=== PATIENT | male | born 1965 | race Caucasian/White ===

== ENCOUNTER 2018-09-06 01:17 | Emergency (ER) | payer OTHER ==
[~2018-09-06] VITALS: Ht 182.9 cm; Wt 90.7 kg
[~2018-09-06 01:17] MED LIST: ASPIR 8181 MG PO; LIPITOR 20 MG T20 M1 PO; [UNRECOGNIZED DRUG - CODE] PO
[2018-09-06] MEDS ORDERED: DILANTIN100 MG PO (01:32)
[2018-09-06 01:47] LABS: ABSOLUTE BASOPHILS 0.1 thou/uL (0.0-0.2); ABSOLUTE EOSINOPHILS 0.4 thou/uL (0.0-0.7); ABSOLUTE LYMPHOCYTES 2.3 thou/uL (0.8-5.3); ABSOLUTE MONOCYTES 0.7 thou/uL (0.0-1.2); ABSOLUTE NEUTROPHILS 3.7 thou/uL (1.6-8.1); BASOPHILS 1.1 %; EOSINOPHILS 5.1 %; HEMATOCRIT 40.1 % (42.0-52.0); HEMOGLOBIN 13.5 gm/dL (14.0-18.0); LYMPHOCYTES 31.8 %; MCH 32.9 pg (26.0-34.0); MCHC 33.8 g/dL (28.0-37.0); MCV 97.4 fL (80.0-100.0); MONOCYTES 9.5 %; MPV 8.3 fl. (7.2-11.1); NUCLEATED RBCS 0 /100WBC; PLATELET COUNT* 212 thou/uL (150-400); POLYS 52.5 %; RBC 4.12 mil/uL (4.50-6.00); RDW-CV 13.6 % (10.5-14.5); WBC 7.1 thou/uL (4.0-11.0)
[2018-09-06 01:58] LABS: CALCIUM 8.4 mg/dL (8.5-10.1); CREATININE 1.4 mg/dL (0.6-1.3); POTASSIUM 3.9 mmol/L (3.5-5.1)
[2018-09-06 01:59] LABS: APTT 25.5 Seconds (25.0-31.3); PROTIME 10.4 Seconds (9.20-11.50)
[2018-09-06 02:03] LABS: ALBUMIN 3.5 g/dL (3.4-5.0); TOTAL BILIRUBIN 0.1 mg/dL (<0.1-1.0); TOTAL PROTEIN 6.8 g/dL (6.4-8.2)
[2018-09-06] MEDS ORDERED: KEFLEX500 M1 PO (02:50)
[2018-09-06] MEDS ORDERED: IBUPROFEN 800800 MG PO (02:56)
[2018-09-06] MEDS ORDERED: ULTRAM 50MG TAB50 MG PO (02:56)
[2018-09-06 03:07] VITALS: BP 118/66
== END 2018-09-06 03:08 | disposition home or self-care (01) ==
LOC: M.ERS 01:17
PROVIDERS: Personal Emergency Response Attendant
DX: I80.3 Phlebitis and thrombophlebitis of lower extremities, unspecified (principal); Z87.891 Personal history of nicotine dependence

== ENCOUNTER 2020-10-02 16:20 | Inpatient (IN) | payer OTHER ==
[~2020-10-02] VITALS: Ht 182.9 cm; Wt 94.3 kg
[~2020-10-02 16:20] MED LIST changes: +DILANTIN100 MG PO; +IBUPROFEN 800800 MG PO; +KEFLEX500 M1 PO; +ULTRAM 50MG TAB50 MG PO
[2020-10-02 16:31] VITALS: BP 119/80
[2020-10-02 16:48] LABS: ABSOLUTE LYMPHOCYTES 0.7 thou/uL (0.8-5.3); ABSOLUTE MONOCYTES 0.6 thou/uL (0.0-1.2); ABSOLUTE NEUTROPHILS 3.1 thou/uL (1.6-8.1); BASOPHILS 0.4 %; EOSINOPHILS 0.1 %; HEMOGLOBIN 16.3 gm/dL (14.0-18.0); LYMPHOCYTES 15.5 %; MCH 33.1 pg (26.0-34.0); MCHC 34.7 g/dL (28.0-37.0); MCV 95.5 fL (80.0-100.0); MONOCYTES 12.8 %; MPV 8.9 fl. (7.2-11.1); NUCLEATED RBCS 0 /100WBC; PLATELET COUNT* 137 thou/uL (150-400); POLYS 71.2 %; RBC 4.92 mil/uL (4.50-6.00); RDW-CV 13.1 % (10.5-14.5); WBC 4.3 thou/uL (4.0-11.0)
[2020-10-02 16:59] LABS: CALCIUM 8.4 mg/dL (8.5-10.1); CREATININE 1.4 mg/dL (0.6-1.3); POTASSIUM 3.5 mmol/L (3.5-5.1)
[2020-10-02 17:01] LABS: APTT 29.5 Seconds (25.0-31.3); INR 1.1; PROTIME 11.6 Seconds (9.20-11.50)
[2020-10-02 17:09] LABS: ALBUMIN 3.5 g/dL (3.4-5.0); TOTAL BILIRUBIN 0.3 mg/dL (<0.1-1.0); TOTAL PROTEIN 8.1 g/dL (6.4-8.2)
[2020-10-02 18:40] VITALS: BP 126/79
[2020-10-02 20:00] VITALS: BP 115/75
[2020-10-03] VITALS (7 sets, daily range): BP systolic 105–133; BP diastolic 65–87
[2020-10-03 01:10] LABS: URINE BLOOD TRACE (Negative); URINE CLARITY CLEAR; URINE COLOR YELLOW; URINE GLUCOSE-RANDOM NEGATIVE (Negative); URINE KETONES 3+ (Negative); URINE LEUKOCYTES-REFLEX NEGATIVE (Negative); URINE NITRITE-REFLEX NEGATIVE (Negative); URINE PROTEIN 1+ (Negative); URINE SPECIFIC GRAVITY 1.025 (1.005-1.030); URINE UROBILINOGEN 0.2 E.U./dl (0.2-1.0)
[2020-10-03 01:11] LABS: URINE BILIRUBIN 1+ (Negative)
[2020-10-03 01:13] LABS: ACETEST (KETONE CONFIRMATORY) Moderate (Negative); ICTOTEST (BILI CONFIRMATORY) Negative (Negative)
[2020-10-03 06:54] LABS: ABSOLUTE LYMPHOCYTES 0.8 thou/uL (0.8-5.3); ABSOLUTE MONOCYTES 0.4 thou/uL (0.0-1.2); ABSOLUTE NEUTROPHILS 1.7 thou/uL (1.6-8.1); BASOPHILS 0.4 %; MCH 32.4 pg (26.0-34.0); MCHC 34.1 g/dL (28.0-37.0); MCV 95.1 fL (80.0-100.0); MONOCYTES 13.5 %; MPV 9.1 fl. (7.2-11.1); NUCLEATED RBCS 0 /100WBC; PLATELET COUNT* 120 thou/uL (150-400); POLYS 58.1 %; RBC 4.21 mil/uL (4.50-6.00); RDW-CV 13.2 % (10.5-14.5); WBC 2.9 thou/uL (4.0-11.0)
[2020-10-03 06:57] LABS: CALCIUM 7.5 mg/dL (8.5-10.1); CREATININE 1.1 mg/dL (0.6-1.3); POTASSIUM 3.5 mmol/L (3.5-5.1)
[2020-10-03 06:58] LABS: HEMOGLOBIN 13.6 gm/dL (14.0-18.0)
--- NOTE | 2020-10-03 10:05 | EKG ---
[place] [address] ELECTROCARDIOGRAM REPORT Name: TONNY CHAPMAN Room: [address] ADM IN .R.#: [id number] Admission: 10/02/20 Attend Phys: Shilo Tabares, Discharge: Date of : 61 Date of Service: 10/02/20 1647 Report #: [id number] THIS REPORT FOR: //name// [facility] ED Test Date: 2020-10-02 Test Time: 16:47:57 Pat Name: TONNY CHAPMAN Department: Room: [facility] Gender: M Mother Baby Rn: CCD : 1965 Requested By: Mark Gregory Order Number: [id number] MD: Mohinder Contreras Measurements Intervals Elizabeth Rate: 87 P: 37 VT: 167 QRS: 261 QRSD: 105 T: 31 QT: 368 QTc: 443 Interpretive Statements Sinus rhythm LAD, consider left anterior fascicular block late transition Compared to ECG 10/17/2017 02:11:19 No significant changes Electronically Signed On 10-03-2020 10:05:23 WHEEL LOADER OPERATOR by Mohinder Contreras [email or web address] <ELECTRONICALLY SIGNED> By: Mohinder Contreras MD, FACC 10/03/20 1005 1647 1647 Mohinder Contreras MD, [facility] /EPI
[2020-10-04 00:08] VITALS: BP 133/78
[2020-10-04 04:20] VITALS: BP 110/65
[2020-10-04 07:06] LABS: ABSOLUTE LYMPHOCYTES 0.8 thou/uL (0.8-5.3); ABSOLUTE MONOCYTES 0.3 thou/uL (0.0-1.2); BASOPHILS 0.3 %; EOSINOPHILS 0.1 %; HEMATOCRIT 36.9 % (42.0-52.0); HEMOGLOBIN 12.7 gm/dL (14.0-18.0); LYMPHOCYTES 24.1 %; MCH 32.6 pg (26.0-34.0); MCHC 34.4 g/dL (28.0-37.0); MONOCYTES 10.7 %; MPV 8.6 fl. (7.2-11.1); NUCLEATED RBCS 0 /100WBC; PLATELET COUNT* 136 thou/uL (150-400); POLYS 64.8 %; RBC 3.88 mil/uL (4.50-6.00); RDW-CV 13.4 % (10.5-14.5); WBC 3.1 thou/uL (4.0-11.0)
[2020-10-04 07:27] LABS: ALBUMIN 2.4 g/dL (3.4-5.0); CALCIUM 6.9 mg/dL (8.5-10.1); POTASSIUM 3.4 mmol/L (3.5-5.1); TOTAL BILIRUBIN 0.3 mg/dL (<0.1-1.0); TOTAL PROTEIN 5.8 g/dL (6.4-8.2)
[2020-10-04 09:25] VITALS: BP 121/85
[2020-10-04 12:49] VITALS: BP 126/81
[2020-10-04 18:00] VITALS: BP 123/73
[2020-10-04 20:14] VITALS: BP 113/70
[2020-10-05 00:08] VITALS: BP 137/79
[2020-10-05 05:07] LABS: ABSOLUTE LYMPHOCYTES 0.7 thou/uL (0.8-5.3); ABSOLUTE MONOCYTES 0.4 thou/uL (0.0-1.2); ABSOLUTE NEUTROPHILS 2.7 thou/uL (1.6-8.1); BASOPHILS 0.2 %; EOSINOPHILS 0.1 %; HEMATOCRIT 39.9 % (42.0-52.0); HEMOGLOBIN 13.7 gm/dL (14.0-18.0); LYMPHOCYTES 19.2 %; MCH 32.6 pg (26.0-34.0); MCHC 34.5 g/dL (28.0-37.0); MCV 94.7 fL (80.0-100.0); MONOCYTES 10.6 %; MPV 8.6 fl. (7.2-11.1); NUCLEATED RBCS 0 /100WBC; PLATELET COUNT* 154 thou/uL (150-400); POLYS 69.9 %; RBC 4.21 mil/uL (4.50-6.00); RDW-CV 13.1 % (10.5-14.5); WBC 3.9 thou/uL (4.0-11.0)
[2020-10-05 05:10] VITALS: BP 106/72
[2020-10-05 05:27] LABS: ALBUMIN 2.6 g/dL (3.4-5.0); CALCIUM 7.5 mg/dL (8.5-10.1); POTASSIUM 3.3 mmol/L (3.5-5.1); TOTAL BILIRUBIN 0.4 mg/dL (<0.1-1.0); TOTAL PROTEIN 6.3 g/dL (6.4-8.2)
[2020-10-05 08:00] VITALS: BP 152/76
[2020-10-05 12:27] VITALS: BP 109/74
[2020-10-05 16:20] VITALS: BP 116/75
[2020-10-05 20:59] VITALS: BP 117/57
[2020-10-06 00:28] VITALS: BP 102/61
[2020-10-06 05:07] VITALS: BP 148/69
[2020-10-06 05:50] LABS: ABSOLUTE LYMPHOCYTES 0.5 thou/uL (0.8-5.3); ABSOLUTE MONOCYTES 0.5 thou/uL (0.0-1.2); ABSOLUTE NEUTROPHILS 3.8 thou/uL (1.6-8.1); BASOPHILS 0.4 %; HEMATOCRIT 42.2 % (42.0-52.0); HEMOGLOBIN 14.5 gm/dL (14.0-18.0); MCH 32.5 pg (26.0-34.0); MCHC 34.4 g/dL (28.0-37.0); MCV 94.6 fL (80.0-100.0); MONOCYTES 10.1 %; MPV 9.2 fl. (7.2-11.1); NUCLEATED RBCS 0 /100WBC; PLATELET COUNT* 182 thou/uL (150-400); POLYS 78.5 %; RBC 4.46 mil/uL (4.50-6.00); RDW-CV 13.2 % (10.5-14.5); WBC 4.8 thou/uL (4.0-11.0)
[2020-10-06 06:11] LABS: PREALBUMIN 10.9 mg/dL (18.0-35.7)
[2020-10-06 06:13] LABS: ALBUMIN 2.8 g/dL (3.4-5.0); CREATININE 1.1 mg/dL (0.6-1.3); POTASSIUM 3.5 mmol/L (3.5-5.1); TOTAL BILIRUBIN 0.6 mg/dL (<0.1-1.0); TOTAL PROTEIN 7.1 g/dL (6.4-8.2)
[2020-10-06 07:01] LABS: TOTAL PHENYTOIN 6.2 ug/mL (10.0-20.0)
[2020-10-06 10:08] LABS: FREE PHENYTOIN 0.5 ug/mL (1.0-2.0)
[2020-10-06 11:46] VITALS: BP 118/73
--- NOTE | 2020-10-06 14:41 | CON ---
[address] [address] CONSULTATION Name: TONNY CHAPMAN Room: [address] IN M.R.#: [id number] Admission: 10/02/20 Attend Phys: Shilo Tabares MD Discharge: Date of : 61 Report #: [id number] THIS REPORT FOR: //name// cc: BENJAMIN - Raquel family physician/PCP BENJAMIN - No family physician/PCP ~ DATE OF SERVICE: 10/06/2020 REQUESTING PHYSICIAN: Shilo Tabares MD INDICATION FOR CONSULTATION: COVID-19. HISTORY OF PRESENT ILLNESS: This is a 55-year-old gentleman. He is a lifetime nonsmoker. He has a history of seizure in the past. Otherwise, he has been in good health. He is now admitted here with COVID-19 since 10/02/2020. 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 The patient initially was admitted with having a loss of appetite and feeling very weak and achy. He also had a minor cough with minimal sputum production. The patient upon arrival was on room air and until yesterday morning was maintaining O2 saturation around 94-96% on room air. The patient's O2 saturation began to decline yesterday intermittently. He required 2 liters of oxygen and at times was also off of oxygen to maintain O2 saturation in the low 90s by this morning, the patient is now requiring 2.5 liters oxygen consistently and still has had desaturations up to 89%. His chest x-rays also showed increasing infiltrates. The patient in addition had a high-grade fever of 38.2 overnight. He does report some increase in shortness of breath and cough, but not much increase in sputum as well. The patient has had fevers, chills and body aches also reports that he recently had some nausea and diarrhea. REVIEW OF SYSTEMS: The patient's review of systems for 10 points is negative except as mentioned above. PAST MEDICAL HISTORY: Seizure. SOCIAL HISTORY: There is conflicting information regarding his history of smoking. Above I had mentioned that he is a lifetime nonsmoker, which is documented in his records, but I also see in his records mentioned that he has smoked cigarettes in the past. No known history of heavy alcohol use or illegal drug use. CURRENT MEDICATIONS: [facility] [place] [address] CONSULTATION Name: TONNY CHAPMAN Room: [address]#: [id number] Admission: 10/02/20 Attend Phys: Shilo Tabares MD Discharge: Date of : 61 Report #: [id number] HOME MEDICATIONS: In [facility] reviewed. FAMILY HISTORY: No pertinent family history. ALLERGIES: No known drug allergies. PHYSICAL EXAMINATION: GENERAL: He is alert, awake and oriented. VITAL SIGNS: Has a pulse of 88 and a blood pressure of 118/73. He is on 2.5 liters oxygen via nasal cannula, O2 saturation this morning on this oxygen has been between 89% and 92%. His respiratory rate is 16-20, heart rate 88, afebrile now with a temperature of 36.8. He did have a temperature up to 38.2 degrees Celsius earlier today. HEENT: Head is normocephalic and atraumatic. NECK: Does not show raised JVP. CHEST: Breath sounds bilaterally equal. I do not hear any added sounds. HEART: Regular. There is no murmur. ABDOMEN: Soft and nontender. EXTREMITIES: Lower extremities show no edema and no calf tenderness. LABORATORY DATA: The patient's chest x-rays, which do show increasing infiltrates in [facility] reviewed. Lab work in [facility] reviewed. There is a significant increase in CRP noted as well, which has trended upwards. ASSESSMENT AND PLAN: 1. Acute hypoxemic respiratory failure secondary to COVID-19. I recommend continuing to titrate oxygen. I will obtain D-dimer, BNP again now and we will review and then decide about obtaining a CTA chest and/or diuresis. We will also add Brovana. 2. COVID-19, I agree with starting remdesivir. LFTs are elevated today. I still feel that the benefit of remdesivir far exceeds the risks and therefore, I fully agree with remdesivir. We will continue. Also, agree with dexamethasone in the current dose. The patient has received 1 unit of convalescent plasma already. We will go ahead and give him one more unit. 3. Pulmonary infiltrates. I agree with doxycycline and ceftriaxone, switch doxycycline over to p.o. to reduce his fluid intake. Would add Florastor for Clostridium difficile prophylaxis. We will check a nasal swab for MRSA. If able to obtain then we will do a sputum culture as well. 4. History of seizure disorder. [facility] [address] [place] [address] CONSULTATION Name: TONNY CHAPMAN Room: [address] IN M.R.#: [id number] Admission: 10/02/20 Attend Phys: Shilo Tabares MD Discharge: Date of : 61 Report #: [id number] 5. Deep venous thrombosis prophylaxis, on Lovenox. 6. Clostridium difficile prophylaxis. We will add Florastor. <ELECTRONICALLY SIGNED> By: Ivan Duong MD 10/06/20 1441 1406 [id number] Duong MD /nt
[2020-10-06 15:32] VITALS: BP 110/71
[2020-10-06 15:59] LABS: CALCIUM 7.6 mg/dL (8.5-10.1); CREATININE 1.1 mg/dL (0.6-1.3); MAGNESIUM 2.1 mg/dL (1.8-2.4); POTASSIUM 3.1 mmol/L (3.5-5.1)
[2020-10-06 20:30] VITALS: BP 116/77
[2020-10-07] VITALS: BP 116/73
[2020-10-07 04:00] VITALS: BP 109/70
[2020-10-07 06:42] LABS: ABSOLUTE LYMPHOCYTES 0.8 thou/uL (0.8-5.3); ABSOLUTE MONOCYTES 0.5 thou/uL (0.0-1.2); ABSOLUTE NEUTROPHILS 2.4 thou/uL (1.6-8.1); BASOPHILS 0.5 %; EOSINOPHILS 0.2 %; LYMPHOCYTES 21.6 %; MCH 32.5 pg (26.0-34.0); MCHC 34.2 g/dL (28.0-37.0); MCV 95.1 fL (80.0-100.0); MPV 9.1 fl. (7.2-11.1); NUCLEATED RBCS 0 /100WBC; PLATELET COUNT* 208 thou/uL (150-400); POLYS 64.7 %; RBC 4.31 mil/uL (4.50-6.00); RDW-CV 13.3 % (10.5-14.5); WBC 3.7 thou/uL (4.0-11.0)
[2020-10-07 07:14] LABS: ALBUMIN 2.6 g/dL (3.4-5.0); CALCIUM 7.9 mg/dL (8.5-10.1); CREATININE 0.8 mg/dL (0.6-1.3); POTASSIUM 3.5 mmol/L (3.5-5.1); TOTAL BILIRUBIN 0.3 mg/dL (<0.1-1.0)
[2020-10-07 07:55] VITALS: BP 119/81
[2020-10-07 11:29] VITALS: BP 117/68
[2020-10-07 18:35] VITALS: BP 117/80
[2020-10-07 20:00] VITALS: BP 135/89
[2020-10-08 00:23] VITALS: BP 114/76
[2020-10-08 05:30] VITALS: BP 128/71
[2020-10-08 06:59] LABS: ABSOLUTE LYMPHOCYTES 0.8 thou/uL (0.8-5.3); ABSOLUTE MONOCYTES 0.7 thou/uL (0.0-1.2); ABSOLUTE NEUTROPHILS 2.7 thou/uL (1.6-8.1); BASOPHILS 0.3 %; EOSINOPHILS 0.5 %; HEMATOCRIT 42.9 % (42.0-52.0); HEMOGLOBIN 14.6 gm/dL (14.0-18.0); LYMPHOCYTES 19.3 %; MCH 32.7 pg (26.0-34.0); MCHC 33.9 g/dL (28.0-37.0); MCV 96.3 fL (80.0-100.0); MONOCYTES 16.2 %; MPV 8.9 fl. (7.2-11.1); NUCLEATED RBCS 0 /100WBC; PLATELET COUNT* 248 thou/uL (150-400); POLYS 63.7 %; RBC 4.45 mil/uL (4.50-6.00); RDW-CV 13.6 % (10.5-14.5); WBC 4.2 thou/uL (4.0-11.0)
[2020-10-08 07:13] LABS: POTASSIUM 3.5 mmol/L (3.5-5.1)
[2020-10-08 08:00] VITALS: BP 96/68
[2020-10-08 12:00] VITALS: BP 108/69
[2020-10-08 16:00] VITALS: BP 124/75
[2020-10-08 20:20] VITALS: BP 121/85
[2020-10-09] VITALS: BP 129/83
[2020-10-09 04:00] VITALS: BP 113/70
[2020-10-09 08:00] VITALS: BP 136/87
[2020-10-09 13:09] VITALS: BP 148/93
[2020-10-09] MEDS ORDERED: IBUPROFEN 400400 M2 PO (15:59)
[2020-10-09] MEDS ORDERED: ACETAMINOPHEN325 M1 PO (15:59)
[2020-10-09] MEDS ORDERED: DOXYCYCLINE 100 MG PO (15:59)
[2020-10-09] MEDS ORDERED: ASPIR 8181 MG PO (15:59)
[2020-10-09] MEDS ORDERED: FLORASTOR250 MG PO (15:59)
[2020-10-09] MEDS ORDERED: DEXAMETHASO0.1 MG/M1 PO (16:01)
[2020-10-09 16:18] VITALS: BP 148/93
[2020-10-09 18:24] VITALS: BP 148/93
== END 2020-10-09 17:00 | disposition home or self-care (01) | DRG 871 ==
LOC: M.ERS 16:20 → M.TBA-ER 17:33 → M.ORTHSURG 19:00
PROVIDERS: Family Medicine; Internal Medicine Critical Care Medicine; ADMIT Internal Medicine; ATTEND Internal Medicine
PROC: XW13325 Transfusion of Convalescent Plasma (Nonautologous) into Peripheral Vein, Percutaneous Approach, New Technology Group 5 (ICD-10-PCS; principal; 2020-10-03)
PROC: XW033E5 Introduction of Remdesivir Anti-infective into Peripheral Vein, Percutaneous Approach, New Technology Group 5 (ICD-10-PCS; 2020-10-06)
DX: A41.89 Other specified sepsis (principal); U07.1 COVID-19; J12.89 Other viral pneumonia; J96.01 Acute respiratory failure with hypoxia; E87.1 Hypo-osmolality and hyponatremia; N17.9 Acute kidney failure, unspecified; E86.0 Dehydration; Z79.82 Long term (current) use of aspirin; Z79.899 Other long term (current) drug therapy

== ENCOUNTER 2020-10-16 20:20 | Emergency (ER) | payer OTHER ==
[~2020-10-16] VITALS: Ht 182.9 cm; Wt 93.0 kg
[~2020-10-16 20:20] MED LIST changes: +ACETAMINOPHEN325 M1 PO; +DEXAMETHASO0.1 MG/M1 PO; +DOXYCYCLINE 100 MG PO; +FLORASTOR250 MG PO; +IBUPROFEN 400400 M2 PO
[2020-10-17 00:23] LABS: MCHC 33.5 g/dL (28.0-37.0); NUCLEATED RBCS 0 /100WBC
[2020-10-17 00:34] LABS: ABSOLUTE BASOPHILS 0.2 thou/uL (0.0-0.2); ABSOLUTE EOSINOPHILS 0.1 thou/uL (0.0-0.7); ABSOLUTE LYMPHOCYTES 2.2 thou/uL (0.8-5.3); ABSOLUTE MONOCYTES 1.1 thou/uL (0.0-1.2); ABSOLUTE NEUTROPHILS 5.7 thou/uL (1.6-8.1); BASOPHILS 1.7 %; CREATININE 1.4 mg/dL (0.6-1.3); HEMATOCRIT 41.1 % (42.0-52.0); HEMOGLOBIN 13.8 gm/dL (14.0-18.0); LYMPHOCYTES 23.5 %; MCH 32.5 pg (26.0-34.0); MONOCYTES 12.2 %; MPV 8.2 fl. (7.2-11.1); PLATELET COUNT* 282 thou/uL (150-400); POLYS 61.6 %; POTASSIUM 3.4 mmol/L (3.5-5.1); RBC 4.24 mil/uL (4.50-6.00); RDW-CV 14.2 % (10.5-14.5); WBC 9.3 thou/uL (4.0-11.0)
[2020-10-17 00:36] LABS: APTT 22.4 Seconds (25.0-31.3); PROTIME 10.4 Seconds (9.20-11.50)
[2020-10-17 00:39] LABS: ALBUMIN 2.7 g/dL (3.4-5.0); TOTAL BILIRUBIN 0.2 mg/dL (<0.1-1.0)
[2020-10-17 02:17] LABS: ESR (SEDRATE) 38 mm/hr (0-20)
[2020-10-17 02:58] LABS: URINE BILIRUBIN NEGATIVE (Negative); URINE BLOOD NEGATIVE (Negative); URINE CLARITY CLEAR; URINE COLOR YELLOW; URINE GLUCOSE-RANDOM NEGATIVE (Negative); URINE KETONES NEGATIVE (Negative); URINE LEUKOCYTES-REFLEX NEGATIVE (Negative); URINE NITRITE-REFLEX NEGATIVE (Negative); URINE PROTEIN NEGATIVE (Negative); URINE UROBILINOGEN 0.2 E.U./dl (0.2-1.0)
[2020-10-17 05:01] VITALS: BP 161/105
--- NOTE | 2020-10-17 12:25 | EKG ---
[place] [address] ELECTROCARDIOGRAM REPORT Name: TONNY CHAPMAN Room: [facility]#: [id number] Admission: 10/16/20 Attend Phys: Discharge: 10/17/20 Date of : 61 Date of Service: 10/17/20 0014 Report #: [id number] THIS REPORT FOR: //name// [facility] ED Test Date: 2020-10-17 Test Time: 00:14:11 Pat Name: TONNY CHAPMAN Department: Room: Gender: Infrastructure Solutions Architect: OR : 1965 Requested By: Fior Good Order Number: [id number] MD: Jerrell Raza Measurements Intervals [place] Rate: 75 P: 34 CT: 165 QRS: -46 QRSD: 104 T: 7 QT: 409 QTc: 457 Interpretive Statements Sinus rhythm Left axis deviation Abnormal R-wave progression, late transition Compared to ECG 10/02/2020 16:47:57 Left-axis deviation persists Electronically Signed On 10-17-2020 12:24:53 INDUSTRIAL SERVICES WORKER by Jerrell Raza [email or web address] <ELECTRONICALLY SIGNED> By: Jerrell Raza MD, [facility] 10/17/20 1224 0014 0014 Jerrell Raza MD, [facility] /EPI
== END 2020-10-17 05:05 | disposition short-term general hospital (02) ==
LOC: M.ERS 20:20
PROVIDERS: Personal Emergency Response Attendant
DX: I63.9 Cerebral infarction, unspecified (principal); Z20.828 Contact with and (suspected) exposure to other viral communicable diseases; I74.8 Embolism and thrombosis of other arteries; R42 Dizziness and giddiness; R22.32 Localized swelling, mass and lump, left upper limb; Z87.891 Personal history of nicotine dependence; Z79.899 Other long term (current) drug therapy; Z79.82 Long term (current) use of aspirin